=== PATIENT | female | born 1965 | race Caucasian/White ===

== ENCOUNTER 2018-12-15 09:07 | Observation (INO) ==
[2018-12-15] MEDS ORDERED: *HR* Promethazine 25 MG/ML VIAL IVP PRN ×2 (13:42→15:23)
[2018-12-15] MEDS ORDERED: Piperacillin/Tazobactam 3.375 GM in Water for inj. (sterile) 20 ML IVP ONE (13:42)
[2018-12-15] MEDS ORDERED: Ondansetron 4 MG/2 ML VIAL IVP PRN ×2 (13:42→18:25)
[2018-12-15] MEDS ORDERED: Pantoprazole 40 MG VIAL IVP SCH (13:45)
[2018-12-15] MEDS ORDERED: 0.9 % Sodium Chloride 1,000 ML IVC SCH (13:45)
--- NOTE | 2018-12-15 14:35 | Acute Care Surgery H&P ---
<PedroYudy Solomon - Last Filed: 12/15/18 14:32> Date of Encounter: 12/15/18 Time of Encounter: 14:33 Assessment and Plan (1) Left breast abscess Current Visit: Yes Status: Acute The assessment and plan as outlined above was discussed with the patient and/or family members who expressed understanding and agreement. All questions were answered. Plans for surgical excision of left breast wound and wound vac application today with Dr. Herbert. Please see hard chart for complete H&P. we will obtain labs, blood cultures, MRSA swab as this is recurrent, CT of the left breast, and begin ATBX. NPO smoking cessation Duoneb Q4H x2 preoperatively IS DVT prophylaxis EKG for baseline Recommendations, risks, and benefits have been expressly reviewed with the patient bedside by Dr. Herbert and she is agreeable to proceed. A signed consent is placed on her hard chart. History of Present Illness Chief complaint: left breast pain HPI: Ms. Rich is a 53 year old female who is being admitted for surgical excision of a left breast wound. Please see hard chart for complete history and physical. Past Med Surg Social Fam HX - Past Medical History Medical history: asthma, COPD, diabetes, GERD, hypertension, other Additional medical history: crohns, Psychiatric history: anxiety, depression - Past Surgical History Surgical History: appendectomy, , cataract, knee replacement Additional surgical history: Intestinal sx, tubial, - Social History Smoking Status: Current every day smoker Packs per day: 1 Smokeless Tobacco Status: No Alcohol use: rarely Drug use: none - Family History Mother Living Status: Still Living Hx Family Cardiac Disorders: Yes Hx Family Respiratory Disorders: No Hx Family Cancer: No Hx Family GI Disorders: No Hx Family Endocrine Disorder: No Hx Family Neuromuscular Disorders: No Hx Family Neurologic Disorders: No Hx Family HEENT Disorders: No Hx Family Autoimmune Disorders: No Father History Unknown: Yes Adopted: No Living Status: Hx Family Cardiac Disorders: Yes Hx Family Respiratory Disorders: No Hx Family Cancer: No Hx Family GI Disorders: No Hx Family Endocrine Disorder: No Hx Family Neuromuscular Disorders: Yes (CVA) Hx Family Neurologic Disorders: No Hx Family HEENT Disorders: No Hx Family Autoimmune Disorders: No Medications and Allergies Paroxetine [Paxil] 40 mg PO DAILY 11/20/15 [History] Albuterol Sulfate [Proair Hfa] 2 puff IH Q4-6H PRN 01/16/17 [History] Amitriptyline HCl 50 mg PO HS 06/23/16 [History] Labetalol [Trandate] 600 mg PO BID 06/23/16 [History] Loratadine [Claritin] 10 mg PO DAILY 06/23/16 [History] TraZODone 100 mg PO HS PRN 06/23/16 [History] Losartan/HCTZ [Hyzaar 50-12.5 Tablet] 1 tab PO DAILY 08/21/16 [History] Tizanidine HCl [Zanaflex] 4 mg PO TID 12/02/17 [History] Basaglar Kwikpen U-100 60 unit SQ HS 07/20/18 [History] Breo Ellipta 200-25 Mcg INH 1 puff IH DAILY 07/20/18 [History] Caltrate 600+D Plus Tablet 1 tab PO BID 07/20/18 [History] Invokamet 150-1,000 mg Tablet 1 tab PO BID 07/20/18 [History] Oxybutynin Chloride [Ditropan Xl] 1 tab PO DAILY 07/20/18 [History] Pantoprazole Sodium 1 tab PO DAILY 07/20/18 [History] Percocet 5-325 mg Tablet 1 tab PO Q12H 07/20/18 [History] metroNIDAZOLE [Flagyl] 500 mg PO TID #21 tablet 09/25/18 [Rx] Ondansetron ODT [Zofran ODT] 4 mg SL Q6HR PRN #8 tab.rapdis 10/04/18 [Rx] Promethazine [Phenergan] 25 mg PO Q6HR PRN #16 tablet 10/04/18 [Rx] predniSONE [PredniSONE] 10 mg PO DAILY #10 tablet 10/04/18 [Rx] Allergy/AdvReac Type Severity Reaction Status Date / Time No Known Allergies Allergy Verified 07/14/18 11:52 Review of Systems All systems PM: The remainder of the systems were reviewed and are negative General Surgery Exam Initial Vital Signs Temp Pulse Resp BP Pulse Ox 98.4 F 67 16 138/83 98 12/15/18 10:31 12/15/18 10:31 12/15/18 10:31 12/15/18 10:31 12/15/18 10:31 Results - Labs Abnormal lab results POC Glucose 215 mg/dL (70-99) H 12/15/18 10:17 All other labs normal. - VTE Reasons for not Prescribing Prophylaxis: Treatment not Indicated - Low risk for VTE <Deep Herbert - Last Filed: 12/15/18 21:43> Date of Encounter: 12/15/18 History of Present Illness HPI: Ms. Rich is a 53 year old female Review of Systems All systems PM: The remainder of the systems were reviewed and are negative General Surgery Exam Initial Vital Signs Temp Pulse Resp BP Pulse Ox 98.4 F 67 16 138/83 98 12/15/18 10:31 12/15/18 10:31 12/15/18 10:31 12/15/18 10:31 12/15/18 10:31 Results - Labs 12/15/18 13:42 12/15/18 13:45 Abnormal lab results WBC 13.4 K/mcL (4.3-11.1) H 12/15/18 13:42 PT 12.2 Seconds (9.4-12.1) H 12/15/18 13:45 Chloride 97 mEq/L (98-107) L 12/15/18 13:45 Carbon Dioxide 30 mEq/L (23-29) H 12/15/18 13:45 Glucose 135 mg/dL (70-105) H 12/15/18 13:45 POC Glucose 277 mg/dL (70-99) H 12/15/18 21:06 9.9 % (-5.6) H 12/15/18 13:42 Diabetes panel 12/15/18 12/15/18 Range/Units 13:42 13:45 Sodium 139 (136-145) mEq/L Potassium 3.7 (3.5-5.1) mEq/L Chloride 97 L (98-107) mEq/L Carbon Dioxide 30 H (23-29) mEq/L BUN 7 (6-20) mg/dL Creatinine 0.60 (0.60-1.20) mg/dL Glucose 135 H (70-105) mg/dL Hemoglobin A1c 9.9 H ( - 5.6) % Calcium 9.7 (8.6-10.3) mg/dL Calcium panel 12/15/18 Range/Units 13:45 Calcium 9.7 (8.6-10.3) mg/dL Pituitary panel 12/15/18 Range/Units 13:45 Sodium 139 (136-145) mEq/L Potassium 3.7 (3.5-5.1) mEq/L Chloride 97 L (98-107) mEq/L Carbon Dioxide 30 H (23-29) mEq/L BUN 7 (6-20) mg/dL Creatinine 0.60 (0.60-1.20) mg/dL Glucose 135 H (70-105) mg/dL Calcium 9.7 (8.6-10.3) mg/dL Adrenal panel 12/15/18 Range/Units 13:45 Sodium 139 (136-145) mEq/L Potassium 3.7 (3.5-5.1) mEq/L Chloride 97 L (98-107) mEq/L Carbon Dioxide 30 H (23-29) mEq/L BUN 7 (6-20) mg/dL Creatinine 0.60 (0.60-1.20) mg/dL Glucose 135 H (70-105) mg/dL Calcium 9.7 (8.6-10.3) mg/dL All other labs normal. - Attending Attestation I have personally performed a face to face evaluation on this patient. I have reviewed and agree with the care plan. History and Exam by me shows: The patient is seen and evaluated with Dr. Maier. She has a necrotic abcess/ulcer of the left breast with surrounding cellulitis. 3 x 3 x 2 cm with liquifactive necrosis. We will plan debridement later today and wounnd vac primarily Deep Herbert MD FACS
[2018-12-15] MEDS ORDERED: D5% in Water 1,000 ML IVC PRN ×2 (14:37→18:25)
[2018-12-15] MEDS ORDERED: *HR* Dextrose 50 % in Water (Syg) 50 ML SYRINGE IVP PRN ×2 (14:37→18:25)
[2018-12-15] MEDS ORDERED: Dextrose Gel 15 GM/37.5 ML TUBE PO PRN ×4 (14:37→18:25)
[2018-12-15 15:10] LABS: Basophils # 0.1 K/mcL (0.0-0.2); Basophils % 0.8 %; Eosinophils # 0.5 K/mcL (0.0-0.6); Eosinophils % 3.4 %; Hematocrit 42.4 % (35.3-44.9); Hemoglobin 13.7 g/dL (11.5-15.4); Immature Granulocytes % 0.6 % (0-4); Lymphocytes # 4.3 K/mcL (0.6-4.6); Lymphocytes % 32.3 %; Mean Corpuscular HGB Conc 32.3 g/dL (31.6-35.5); Mean Corpuscular Hemoglobin 31.6 pg (28.0-33.3); Mean Corpuscular Volume 97.7 fL (83.0-100.0); Mean Platelet Volume 9.4 fL (9.4-12.4); Monocytes # 0.9 K/mcL (0.0-1.3); Monocytes % 6.8 %; Neutrophils # 7.5 K/mcL (1.6-8.9); Platelet Count 290 K/mcL (140-400); Red Blood Count 4.34 M/mcL (3.82-4.97); Red Cell Distribution Width 13.8 % (11.5-14.5); Segmented Neutrophils % 56.1 %; White Blood Count 13.4 K/mcL (4.3-11.1)
[2018-12-15 15:20] LABS: INR 1.1; Prothrombin Time 12.2 Seconds (9.4-12.1)
--- NOTE | 2018-12-15 15:20 | Anesthesia Evaluation PreOp ---
Date of Encounter: 12/15/18 Time of Encounter: 15:18 - Past History Planned Operation: I&D L breast with wound vac Cardiac History: HTN, Hyperlipidemia Pulmonary History: Smoker (1 ppd), Asthma (mild), COPD, IVONNE Dx (CPAP 2) [employer] History: Other (anxiety depression) Other Medical History: Diabetes Type II, GERD, Other (BMI 41, Crohn's) Anesthesia History: No Prior Anesthetic Complications, Past Anesthesia (C- section, Appy, L-TKR, Ileocecectomy/excision merkels diverticulum, Tubal, L- knee chondroplasty ,L-TKR 2008,4 R-TKR 05/2013, Cataracts) : No Alcohol Use: rarely Drug use: none Medications and Allergies Paroxetine [Paxil] 40 mg PO DAILY 11/20/15 [History] Albuterol Sulfate [Proair Hfa] 2 puff IH Q4-6H PRN 06/23/16 [History] Amitriptyline HCl 50 mg PO HS 06/23/16 [History] Labetalol [Trandate] 600 mg PO BID 06/23/16 [History] Loratadine [Claritin] 10 mg PO DAILY 06/23/16 [History] TraZODone 100 mg PO HS PRN 06/23/16 [History] Losartan/HCTZ [Hyzaar 50-12.5 Tablet] 1 tab PO DAILY 08/21/16 [History] Tizanidine HCl [Zanaflex] 4 mg PO TID 12/02/17 [History] Basaglar Kwikpen U-100 60 unit SQ HS 07/20/18 [History] Breo Ellipta 200-25 Mcg INH 1 puff IH DAILY 07/20/18 [History] Caltrate 600+D Plus Tablet 1 tab PO BID 07/20/18 [History] Invokamet 150-1,000 mg Tablet 1 tab PO BID 07/20/18 [History] Oxybutynin Chloride [Ditropan Xl] 1 tab PO DAILY 07/20/18 [History] Pantoprazole Sodium 1 tab PO DAILY 07/20/18 [History] Percocet 5-325 mg Tablet 1 tab PO Q12H 07/20/18 [History] metroNIDAZOLE [Flagyl] 500 mg PO TID #21 tablet 09/25/18 [Rx] Ondansetron ODT [Zofran ODT] 4 mg SL Q6HR PRN #8 tab.rapdis 10/04/18 [Rx] Promethazine [Phenergan] 25 mg PO Q6HR PRN #16 tablet 10/04/18 [Rx] predniSONE [PredniSONE] 10 mg PO DAILY #10 tablet 10/04/18 [Rx] Allergy/AdvReac Type Severity Reaction Status Date / Time No Known Allergies Allergy Verified 07/14/18 11:52 - Meds/Allergy Pre-op Review Medications Reviewed: Yes Allergies Reviewed: Yes Beta Blockers on Current Med List: Yes (labetalol ) Anesthesia Results - Labs 12/15/18 13:42 - Imaging EKG: report reviewed Anesthesia Exam Vital Signs/O2 Sat/Glucose, Most Recent Temp Pulse Resp BP Pulse Ox 97.9 F 60 21 155/92 99 12/15/18 12:37 12/15/18 12:37 12/15/18 12:37 12/15/18 12:37 12/15/18 12:37 Blood Glucose* 215 Weight: 113 kg NPO (# of Hours): > 8 hr - HEENT Pupil (Motor): Pupils equal Mallampati: II Teeth: Edentulous Oral Opening: Greater than 3 - [employer] LOC: Oriented [employer] Motor: Normal RUE, Normal LUE, Normal RLE, Normal LLE, Normal Face [employer] Sensory: Normal: RUE, LUE, RLE, LLE, Face - Cardiac Rhythm: Regular Murmur: None - Pulmonary Breath Sounds: bilateral Clear Respiratory Effort: Symmetrical Anesthesia Assess/Plan ASA Score: 3 (BMI 41, IVONNE, COPD, HTN) Level of consciousness: Cooperative, Oriented Anesthetic Plan: General Monitoring Plan: Standard Monitors Recovery Plan: PACU
[2018-12-15] MEDS ORDERED: *HR* Labetalol 20 MG/4 ML SYRINGE IVP PRN (15:23)
[2018-12-15] MEDS ORDERED: Ketorolac 30 MG/ML VIAL IVP ONE (15:23)
[2018-12-15] MEDS ORDERED: Ondansetron 4 MG/2 ML VIAL IVP ONE (15:23)
[2018-12-15] MEDS ORDERED: *HR* OxyCODONE Immed Rel 5 MG TABLET PO PRN (15:23)
[2018-12-15] MEDS ORDERED: Acetaminophen IV 1,000 MG/100 ML INFUS..BTL IVPB ONE (15:23)
[2018-12-15] MEDS ORDERED: *HR* HYDROmorphone (PF) 1 MG/ML SYRINGE IVP PRN (15:23)
[2018-12-15 15:28] LABS: BUN/Creatinine Ratio 12 (6-26); Blood Urea Nitrogen 7 mg/dL (6-20); Calcium 9.7 mg/dL (8.6-10.3); Carbon Dioxide 30 mEq/L (23-29); Chloride 97 mEq/L (98-107); Glucose 135 mg/dL (70-105); Osmolality,Calculated 288 (280-300); Potassium 3.7 mEq/L (3.5-5.1); Sodium 139 mEq/L (136-145); eGFR For African Americans > 60 (> 60); eGFR For Non-African Americans > 60 (> 60)
[2018-12-15] MEDS: Ipratropium/Albuterol Neb 3 ML IH SCH (16:14)
[2018-12-15] MEDS: Albuterol 2.5 MG/3 ML NEBULIZER IH ONE ×2 (16:14→18:02)
[2018-12-15] MEDS ORDERED: Dexamethasone 4 MG/ML VIAL ONE (16:57)
[2018-12-15] MEDS ORDERED: Ondansetron 4 MG/2 ML VIAL ONE (16:57)
[2018-12-15] MEDS ORDERED: Lidocaine -MPF 2% 2 ML VIAL ONE (16:57)
[2018-12-15] MEDS ORDERED: *HR* Propofol 200 MG/20 ML VIAL IVP ONE ×2 (16:57→17:01)
[2018-12-15] MEDS ORDERED: *HR* FentaNYL (PF) 100 MCG/2 ML VIAL ONE (16:57)
[2018-12-15 17:19] LABS: Estimated Average Glucose 237 mg/dl
--- NOTE | 2018-12-15 17:40 | Operative Note ---
Date of procedure: 12/15/18 Pre-op diagnosis: Necrotic wound left breast Post-op diagnosis: same Procedure: #1 resection of necrotic ulcer left breast. Ulcer measures 3 cm x 3 cm x 2 cm and completely removed by liquefactive necrosis. Resection measures 5 cm x 4 cm x 2.5 cm #[address] negative pressure wound dressing (wound VAC) Anesthesia: CHANEL Surgeon: Deep Herbert Was there an social science research assistant present: No Estimated blood loss (cc): 10 Specimen: 5 cm x 4 cm tissue containing a central necrotic ulcer Condition: stable Disposition: PACU Procedure in Detail: After informed consent the patients taking major operating suite placed in the supine position and given adequate general anesthetic. The left breast is prepped and draped in sterile fashion utilizing Betadine solution and standard draping techniques. The left breast is marked with a lateralizing mariangel and this is identified and there is a stop sign on the right breast. The left breast has a 3 cm x 3 cm x 2 cm deep ulcer completely surrounded with liquefactive necrosis and cellulitis. This will need to be excised. Electrocautery was used to make an elliptical skin incision around the ulcer I dissected down to the level of the pectoralis and completely resected the ulcer and surrounding tissue to normal tissue. The excision is 5 cm x 4 cm x 2.5 cm depth. Electrocautery was used for hemostasis. I obtained cultures of the deep tissues for aerobic and anaerobic cultures. I then irrigated with copious amounts of antibiotic containing solution. I cut black sponge to up appropriate size and applied a negative pressure wound dressing. This developed good suction. There was no bleeding. Blood loss was 10 mL. Patient tolerated the procedure well.
[2018-12-15] MEDS ORDERED: Insulin LISPRO 300 UNITS/3 ML VIAL SQ SCH (18:00)
[2018-12-15] MEDS ORDERED: 0.9 % Sodium Chloride 1,000 ML ONE (19:07)
[2018-12-15] MEDS: 0.9 % Sodium Chloride 1,000 ML IVC SCH (21:00)
[2018-12-16] MEDS ORDERED: Piperacillin/Tazobactam 3.375 GM in 0.9 % Sodium Chloride Mini Bag 100 ML IVPB SCH
[2018-12-16] MEDS ORDERED: Insulin LISPRO 300 UNITS/3 ML VIAL SQ SCH
--- NOTE | 2018-12-16 02:18 | Anesthesia Evaluation Post Op ---
Date of Encounter: 12/15/18 Time of Encounter: 18:15 - Vital Signs Vital Signs: Vital Signs Temp Pulse Resp BP Pulse Ox 12/15/18 18:17 98.8 F 66 14 144/76 92 12/15/18 18:07 98.3 F 66 12 138/72 95 12/15/18 17:57 68 14 129/69 91 12/15/18 17:47 70 14 119/68 93 12/15/18 17:37 98.3 F 74 16 108/67 96 12/15/18 12:37 97.9 F 60 21 155/92 99 12/15/18 10:31 98.4 F 67 16 138/83 98 Intake and Output 12/15/18 12/15/18 12/16/18 15:59 23:59 07:59 Intake Total 220 / 220 Output Total 305 / 305 Balance -85 / -85 Intake: Oral 220 / 220 Output: Urine 300 / 300 Estimated Blood Loss 5 / 5 Other: # Voids 1 1 Weight 113.398 kg Blood Glucose* 215 277 - Lungs Lungs: Clear Ascult./Percussion - Airway Airway: Non-obstructed - Cardiovascular Baseline Rhythm - Mental Status Mental Status: Alert & Oriented, Answers Appropriately - Pain Pain Scale: 4 Pain Scale used: Numeric (1 - 10) - Nausea Vomiting Nausea Vomiting: Not Present - Hydration Hydration: Ice chips, Has not voided - Discharge PostOp Status: Transfer Patient to floor Anes Supervising Prov Stmt: Pt seen/evaluated VSS and has met criteria for discharge to floor. - MD Stephany
[2018-12-16] MEDS ORDERED: Dextrose Gel 15 GM/37.5 ML TUBE PO PRN ×2 (06:22)
[2018-12-16] MEDS ORDERED: D5% in Water 1,000 ML IVC PRN (06:22)
[2018-12-16] MEDS ORDERED: *HR* Dextrose 50 % in Water (Syg) 50 ML SYRINGE IVP PRN (06:22)
[2018-12-16] MEDS: Insulin LISPRO 300 UNITS/3 ML VIAL SQ SCH ×5 (08:09→21:14)
[2018-12-16] MEDS: Pantoprazole 40 MG VIAL IVP SCH (08:44)
[2018-12-16] MEDS ORDERED: Vancomycin 500 MG in 0.9 % Sodium Chloride Mini Bag 100 ML IVPB SCH (11:00)
--- NOTE | 2018-12-16 11:53 | AcuteCareSurgery Progress Note ---
Date of Encounter: 12/16/18 Time of Encounter: 10:00 - Assessment and Plan (1) Left breast abscess Current Visit: Yes Status: Acute The patient is postoperative day 1 from excision of left breast abscess/ulcer with debridement all the way to the chest wall. She is currently on negative pressure wound dressing and broad-spectrum antibiotic therapy. Continue current treatment plan Subjective Narrative: The patient is seen and evaluated on morning rounds with the acute care surgery team. She is afebrile. Her vital signs are stable. The surrounding breast erythema is completely gone after debridement. Her negative pressure wound dressing (wound VAC) is operating normally. I was disappointed to see that multiple attempts to renew her antibiotics failed. She is currently not scheduled for any antibiotic therapy. I will restart her Zosyn and vancomycin. Pain control is excellent. We will await pathologic evaluation as well as culture information. We will plan to transition to oral antibiotics and discharged to home wound VAC therapy tomorrow if she remains afebrile Objective Vital Signs - Last 8 Hours Temp Pulse Resp BP Pulse Ox 12/16/18 11:29 97.7 F 72 16 121/60 95 12/16/18 08:24 97.6 F 68 16 138/79 92 12/16/18 04:00 97.8 F 70 18 133/73 97 Intake and Output 12/15/18 12/16/18 12/16/18 23:59 07:59 15:59 Intake Total 220 / 220 450 / 680 230 / 680 Output Total 305 / 305 600 / 825 225 / 825 Balance -85 / -85 -150 / -145 5 / -145 Intake: IV Fluids 250 / 250 Vancocin 1,500 MG In 0.9 % 250 / 250 Sodium Chloride 250 ML @ 166.67 mls/hr IVPB ONCE ONE Rx#: [id number] Oral 220 / 220 200 / 430 230 / 430 Output: Urine 300 / 300 600 / 800 200 / 800 Estimated Blood Loss 5 / 5 Wound Drainage Medial Chest Other: Meal Breakfast Percent of Meal Consumed 75% # Voids 1 Blood Glucose* 277 230 - General physical appearance well developed, well nourished, obese - Respiratory normal expansion, normal respiratory effort, clear to percussion, clear to auscultation - Cardiovascular Cardiovascular exam: Present: RRR, no murmurs/rubs/gallops - Abdomen Abdomen: Present: bowel sounds present, soft, non tender - Incision Incision: Present: open (Negative pressure wound therapy in place with a good se al with no surrounding erythema) - Neurologic normal coordination, normal sensation - Psychiatric oriented to time, oriented to person, oriented to place, speech is normal, memory intact - Labs 12/15/18 13:42 12/15/18 13:45 Diabetes panel 12/15/18 12/15/18 Range/Units 13:42 13:45 Sodium 139 (136-145) mEq/L Potassium 3.7 (3.5-5.1) mEq/L Chloride 97 L (98-107) mEq/L Carbon Dioxide 30 H (23-29) mEq/L BUN 7 (6-20) mg/dL Creatinine 0.60 (0.60-1.20) mg/dL Glucose 135 H (70-105) mg/dL Hemoglobin A1c 9.9 H ( - 5.6) % Calcium 9.7 (8.6-10.3) mg/dL Calcium panel 12/15/18 Range/Units 13:45 Calcium 9.7 (8.6-10.3) mg/dL Pituitary panel 12/15/18 Range/Units 13:45 Sodium 139 (136-145) mEq/L Potassium 3.7 (3.5-5.1) mEq/L Chloride 97 L (98-107) mEq/L Carbon Dioxide 30 H (23-29) mEq/L BUN 7 (6-20) mg/dL Creatinine 0.60 (0.60-1.20) mg/dL Glucose 135 H (70-105) mg/dL Calcium 9.7 (8.6-10.3) mg/dL Adrenal panel 12/15/18 Range/Units 13:45 Sodium 139 (136-145) mEq/L Potassium 3.7 (3.5-5.1) mEq/L Chloride 97 L (98-107) mEq/L Carbon Dioxide 30 H (23-29) mEq/L BUN 7 (6-20) mg/dL Creatinine 0.60 (0.60-1.20) mg/dL Glucose 135 H (70-105) mg/dL Calcium 9.7 (8.6-10.3) mg/dL - VTE Reasons for not Prescribing Prophylaxis: Treatment not Indicated - Low risk for VTE Documentation of Mechanical Device: Intermittent pneumatic compression device Consult Discharge Plan - Plan Referrals: Maxim Poole MD [Primary Care Provider] -
--- NOTE | 2018-12-16 12:54 | Electrocardiograph Report ---
[address] [address] Test Date: 2018-12-15 Pat Name: Anastasia Rich Department: EXAM12 Room: [facility] Gender: Uptwist Spinner: : 1965 Requested By: Yudy Vasquez Order Number: [id number] Reading MD: Chelsy Abraham Measurements Intervals [place] Rate: 56 P: [place]: QRS: -5 QRSD: 108 T: 18 QT: 470 QTc: 454 Interpretive Statements Sinus rhythm Artifact limits interpretation Electronically Signed On 12-16-2018 12:52:36 EDT by Chelsy Abraham
[2018-12-16 13:10] LABS: Basophils # 0.1 K/mcL (0.0-0.2); Basophils % 0.4 %; Eosinophils # 0.1 K/mcL (0.0-0.6); Eosinophils % 0.8 %; Hematocrit 41.5 % (35.3-44.9); Hemoglobin 13.3 g/dL (11.5-15.4); Immature Granulocytes % 0.4 % (0-4); Lymphocytes # 3.6 K/mcL (0.6-4.6); Lymphocytes % 22.9 %; Mean Corpuscular Hemoglobin 32.1 pg (28.0-33.3); Mean Corpuscular Volume 100.2 fL (83.0-100.0); Mean Platelet Volume 9.7 fL (9.4-12.4); Monocytes # 1.1 K/mcL (0.0-1.3); Monocytes % 6.8 %; Neutrophils # 10.7 K/mcL (1.6-8.9); Platelet Count 338 K/mcL (140-400); Red Blood Count 4.14 M/mcL (3.82-4.97); Red Cell Distribution Width 13.5 % (11.5-14.5); Segmented Neutrophils % 68.7 %; White Blood Count 15.6 K/mcL (4.3-11.1)
[2018-12-16] MEDS: Piperacillin/Tazobactam 3.375 GM in 0.9 % Sodium Chloride Mini Bag 100 ML IVPB SCH (13:21)
[2018-12-16 13:30] LABS: BUN/Creatinine Ratio 13 (6-26); Blood Urea Nitrogen 15 mg/dL (6-20); Calcium 8.9 mg/dL (8.6-10.3); Carbon Dioxide 28 mEq/L (23-29); Chloride 97 mEq/L (98-107); Glucose 256 mg/dL (70-105); Osmolality,Calculated 300 (280-300); Potassium 3.9 mEq/L (3.5-5.1); Sodium 140 mEq/L (136-145); eGFR For African Americans > 60 (> 60); eGFR For Non-African Americans 50 (> 60)
[2018-12-16] MEDS ORDERED: Vancomycin 1 EACH in 0.9 % Sodium Chloride 250 ML IVPB SCH (16:00)
[2018-12-16] MEDS: 0.9 % Sodium Chloride 1,000 ML IVC SCH (20:54)
[2018-12-17] MEDS: Piperacillin/Tazobactam 3.375 GM in 0.9 % Sodium Chloride Mini Bag 100 ML IVPB SCH ×2 (00:27→08:44)
[2018-12-17] MEDS: Insulin LISPRO 300 UNITS/3 ML VIAL SQ SCH ×3 (08:15→17:26)
[2018-12-17] MEDS ORDERED: 0.9 % Sodium Chloride Mini Bag 100 ML ONE (08:29)
[2018-12-17] MEDS: Pantoprazole 40 MG VIAL IVP SCH (08:42)
[2018-12-17 08:44] LABS: Basophils # 0.1 K/mcL (0.0-0.2); Basophils % 0.6 %; Eosinophils # 0.3 K/mcL (0.0-0.6); Eosinophils % 2.5 %; Hematocrit 43.5 % (35.3-44.9); Hemoglobin 13.7 g/dL (11.5-15.4); Immature Granulocytes % 0.5 % (0-4); Lymphocytes # 3.2 K/mcL (0.6-4.6); Lymphocytes % 28.2 %; Mean Corpuscular HGB Conc 31.5 g/dL (31.6-35.5); Mean Corpuscular Hemoglobin 31.8 pg (28.0-33.3); Mean Corpuscular Volume 100.9 fL (83.0-100.0); Mean Platelet Volume 9.8 fL (9.4-12.4); Monocytes # 0.8 K/mcL (0.0-1.3); Monocytes % 6.6 %; Neutrophils # 6.9 K/mcL (1.6-8.9); Platelet Count 297 K/mcL (140-400); Red Blood Count 4.31 M/mcL (3.82-4.97); Red Cell Distribution Width 13.9 % (11.5-14.5); Segmented Neutrophils % 61.6 %; White Blood Count 11.3 K/mcL (4.3-11.1)
[2018-12-17 08:46] LABS: BUN/Creatinine Ratio 13 (6-26); Blood Urea Nitrogen 13 mg/dL (6-20); Carbon Dioxide 29 mEq/L (23-29); Chloride 103 mEq/L (98-107); Glucose 183 mg/dL (70-105); Osmolality,Calculated 297 (280-300); Potassium 3.9 mEq/L (3.5-5.1); Sodium 141 mEq/L (136-145); eGFR For African Americans > 60 (> 60); eGFR For Non-African Americans 58 (> 60)
[2018-12-17 11:49] VITALS: BP 160/90
--- NOTE | 2018-12-17 12:57 | Discharge Summary ---
<Yudy Vasquez - Last Filed: 12/17/18 14:25> Orders not resulted at time of discharge: Pending orders 12/15/18 14:52 Culture,Blood [BC] Stat Pre-admission MRSA Screen [RM] Stat 12/15/18 17:18 Culture,Anaerobic [RM] Routine 12/15/18 17:42 Surgical Pathology [PTH] Routine Date of Encounter: 12/17/18 Time of Encounter: 12:52 - Discharge Diagnosis (1) Left breast abscess Priority: Primary Status: Acute General Surgery Exam Initial Vital Signs Temp Pulse Resp BP Pulse Ox 98.4 F 67 16 138/83 98 12/15/18 10:31 12/15/18 10:31 12/15/18 10:31 12/15/18 10:31 12/15/18 10:31 - General physical appearance well nourished, no distress - Respiratory normal respiratory effort - Cardiovascular Cardiovascular exam: Present: RRR - Abdomen Abdomen general surgery: Present: bowel sounds present, soft, non tender - Integumentary Integumentary general surgery: Present: other (wound vac occulsive noted) - Neurologic Present: CN 2-12 grossly intact, normal coordination, normal sensation - Musculoskeletal Present: normal gait, normal posture - Psychiatric Psychiatric general surgery: Present: appropriate, oriented to person, oriented to place, oriented to time, speech is normal, memory intact - Hospital Course Hospital course: Ms. Rich is a 53 year old female presented on 12/15/2018 with necrotic left breast wounds last abscess. She was taken to the operating room on the same day where she underwent resection of necrotic ulcers left breast, removal of liquefied necrosis, and placement of a wound VAC. Her hospital course has been uncomplicated. She will be discharged on PO antibiotics and follow-up in the office in approximately 2 to [address] Maier per the patient's request. We will begin discharge planning to home at this time. Home health care to begin on Thursday for wound VAC changes. - Time Spent with Patient Total time spent providing and/or coordinating discharge services: - Discharge Medications Prescriptions: New Amoxicillin/Clavulanate [Augmentin] 875 mg PO BIDWM 14 Days #28 tablet Docusate Sodium [Colace] 100 mg PO BID PRN #30 capsule PRN Reason: Constipation Ibuprofen 800 mg PO Q8H PRN #30 tablet PRN Reason: Postsurgical pain OxyCODONE/APAP 5/325 [Percocet 5/325 MG] 1 each PO Q6HR PRN 7 Days #28 tablet PRN Reason: Pain Ondansetron ODT [Zofran ODT] 4 mg SL Q4HR PRN #30 tab.rapdis PRN Reason: Nausea Continued Amitriptyline HCl 50 mg PO HS Albuterol Sulfate [Proair Hfa] 2 puff IH Q4-6H PRN PRN Reason: Asthma Loratadine [Claritin] 10 mg PO DAILY TraZODone 100 mg PO HS PRN PRN Reason: Sleep Labetalol [Trandate] 600 mg PO BID Losartan/HCTZ [Hyzaar 50-12.5 Tablet] 1 tab PO DAILY Tizanidine HCl [Zanaflex] 4 mg PO TID Basaglar Kwikpen U-100 60 unit SQ HS Caltrate 600+D Plus Tablet 1 tab PO BID Breo Ellipta 200-25 Mcg INH 1 puff IH DAILY Pantoprazole Sodium 1 tab PO DAILY Invokamet 150-1,000 mg Tablet 1 tab PO BID Oxybutynin Chloride [Ditropan XL] 1 tab PO DAILY Paroxetine [Paxil] 40 mg PO DAILY Promethazine [Phenergan] 25 mg PO Q6HR PRN #16 tablet PRN Reason: Nausea Ondansetron ODT [Zofran ODT] 4 mg SL Q6HR PRN #8 tab.rapdis PRN Reason: Nausea Discontinued Percocet 5-325 mg Tablet 1 tab PO Q12H Home Medications: Paroxetine [Paxil] 40 mg PO DAILY 11/20/15 [History] Albuterol Sulfate [Proair Hfa] 2 puff IH Q4-6H PRN 06/23/16 [History] Amitriptyline HCl 50 mg PO HS 06/23/16 [History] Labetalol [Trandate] 600 mg PO BID 06/23/16 [History] Loratadine [Claritin] 10 mg PO DAILY 06/23/16 [History] TraZODone 100 mg PO HS PRN 06/23/16 [History] Losartan/HCTZ [Hyzaar 50-12.5 Tablet] 1 tab PO DAILY 08/21/16 [History] Tizanidine HCl [Zanaflex] 4 mg PO TID 12/02/17 [History] Basaglar Kwikpen U-100 60 unit SQ HS 07/20/18 [History] Breo Ellipta 200-25 Mcg INH 1 puff IH DAILY 07/20/18 [History] Caltrate 600+D Plus Tablet 1 tab PO BID 07/20/18 [History] Invokamet 150-1,000 mg Tablet 1 tab PO BID 07/20/18 [History] Oxybutynin Chloride [Ditropan XL] 1 tab PO DAILY 07/20/18 [History] Pantoprazole Sodium 1 tab PO DAILY 07/20/18 [History] Ondansetron ODT [Zofran ODT] 4 mg SL Q6HR PRN #8 tab.rapdis 10/04/18 [Rx] Promethazine [Phenergan] 25 mg PO Q6HR PRN #16 tablet 10/04/18 [Rx] Amoxicillin/Clavulanate [Augmentin] 875 mg PO BIDWM 14 Days #28 tablet 12/17/18 [Rx] Docusate Sodium [Colace] 100 mg PO BID PRN #30 capsule 12/17/18 [Rx] Ibuprofen 800 mg PO Q8H PRN #30 tablet 12/17/18 [Rx] Ondansetron ODT [Zofran ODT] 4 mg SL Q4HR PRN #30 tab.rapdis 12/17/18 [Rx] OxyCODONE/APAP 5/325 [Percocet 5/325 MG] 1 each PO Q6HR PRN 7 Days #28 tablet 12/17/18 [Rx] Allergies/Adverse Reactions: Allergy/AdvReac Type Severity Reaction Status Date / Time No Known Allergies Allergy Verified 07/14/18 11:52 Date of admission: 12/15/18 09:25 Primary care physician: Maxim Poole MD Consults: 12/16/18 16:23 Consult to Consulting Engineer [CONS] Stat Reason for Consult: [facility] for wound vac. Forms have been filled out and faxed Discharging clinician: Moise Vasquez) Anticipated date of discharge: 12/17/18 Labs on day of discharge: Labs from last 24 hours 12/17/18 12/17/18 12/17/18 11:21 08:08 08:08 WBC 11.3 H RBC 4.31 Hgb 13.7 Hct 43.5 MCV 100.9 H MCH 31.8 MCHC 31.5 L RDW 13.9 Plt Count 297 MPV 9.8 Immature Gran % 0.5 Seg Neutrophils % 61.6 Lymphocytes % 28.2 Monocytes % 6.6 Eosinophils % 2.5 Basophils % 0.6 Neutrophils # 6.9 Lymphocytes # 3.2 Monocytes # 0.8 Eosinophils # 0.3 Basophils # 0.1 Sodium 141 Potassium 3.9 Chloride 103 Carbon Dioxide 29 BUN 13 Creatinine 1.01 Est GFR ( Amer) > 60 Est GFR (Non-Af Amer) 58 L BUN/Creatinine Ratio 13 Glucose 183 H POC Glucose 182 H Calculated Osmolality 297 Calcium 9.0 Random Vancomycin 12/17/18 12/16/18 12/16/18 07:52 21:08 17:10 WBC RBC Hgb Hct MCV MCH MCHC RDW Plt Count MPV Immature Gran % Seg Neutrophils % Lymphocytes % Monocytes % Eosinophils % Basophils % Neutrophils # Lymphocytes # Monocytes # Eosinophils # Basophils # Sodium Potassium Chloride Carbon Dioxide BUN Creatinine Est GFR ( Amer) Est GFR (Non-Af Amer) BUN/Creatinine Ratio Glucose POC Glucose 159 H 269 H 241 H Calculated Osmolality Calcium Random Vancomycin 12/16/18 12/16/18 12/16/18 17:09 15:00 11:58 WBC RBC Hgb Hct MCV MCH MCHC RDW Plt Count MPV Immature Gran % Seg Neutrophils % Lymphocytes % Monocytes % Eosinophils % Basophils % Neutrophils # Lymphocytes # Monocytes # Eosinophils # Basophils # Sodium 140 Potassium 3.9 Chloride 97 L Carbon Dioxide 28 BUN 15 Creatinine 1.15 Est GFR ( Amer) > 60 Est GFR (Non-Af Amer) 50 L BUN/Creatinine Ratio 13 Glucose 256 H POC Glucose 254 H Calculated Osmolality 300 Calcium 8.9 Random Vancomycin 16 12/16/18 11:58 WBC 15.6 H RBC 4.14 Hgb 13.3 Hct 41.5 MCV 100.2 H MCH 32.1 MCHC 32.0 RDW 13.5 Plt Count 338 MPV 9.7 Immature Gran % 0.4 Seg Neutrophils % 68.7 Lymphocytes % 22.9 Monocytes % 6.8 Eosinophils % 0.8 Basophils % 0.4 Neutrophils # 10.7 H Lymphocytes # 3.6 Monocytes # 1.1 Eosinophils # 0.1 Basophils # 0.1 Sodium Potassium Chloride Carbon Dioxide BUN Creatinine Est GFR ( Amer) Est GFR (Non-Af Amer) BUN/Creatinine Ratio Glucose POC Glucose Calculated Osmolality Calcium Random Vancomycin Preliminary micro results at discharge 12/15/18 17:18 Anaerobic Culture - Preliminary Other-Specify in Comments Culture is incubating. 12/15/18 14:52 Blood Culture - Preliminary Peripheral Venipuncture Culture is incubating and being continuously monitored for growth. Final report to follow. 12/15/18 14:56 Blood Culture - Preliminary Peripheral Venipuncture Culture is incubating and being continuously monitored for growth. Final report to follow. - Patient Status Disposition: Home Health Service Condition: Good Functional capacity at discharge: independent ambulation Overall status at discharge: patient is progressing back to baseline - Discharge Instructions Instructions: Abscess (GEN), Negative Pressure Wound Therapy (DC) Follow Up With: Maxim Poole MD [Primary Care Provider] - Additional Instructions: Maintain wound VAC therapy at -125 mmHg; black foam dressings. Dressing changes every Thursday/Thursday/Thursday per home healthcare. Continue antibiotics as prescribed. Not stop antibiotics without talking to your provider. Take ibuprofen every 8 hours if needed for discomfort. If this does not relieve your discomfort you may take one Percocet. I recommend taking one Percocet approximately 60 minutes prior to your wound VAC changes. Eat a small snack and or take the nausea medication provided approximately 20 minutes prior to taking Percocet. Take narcotics only as directed. Do not share your narcotics with any other person. Do not drive while taking narcotics. Do not drink alcohol while taking narcotics. Follow-up in the office as directed. - Diet and Activity Activity: increase activity as tolerated Diet: diabetic diet <Moise Johnson F - Last Filed: 12/17/18 17:21> Orders not resulted at time of discharge: Pending orders 12/15/18 14:52 Culture,Blood [BC] Stat Pre-admission MRSA Screen [RM] Stat 12/15/18 17:18 Culture,Anaerobic [RM] Routine Date of Encounter: 12/17/18 General Surgery Exam Initial Vital Signs Temp Pulse Resp BP Pulse Ox 98.4 F 67 16 138/83 98 12/15/18 10:31 12/15/18 10:31 12/15/18 10:31 12/15/18 10:31 12/15/18 10:31 - Hospital Course Hospital course: Ms. Rich is a 53 year old female - Time Spent with Patient Total time spent providing and/or coordinating discharge services: Date of admission: 12/15/18 09:25 Primary care physician: Maxim Poole MD Consults: 12/16/18 16:23 Consult to Consulting Engineer [CONS] Stat Reason for SW Consult: [facility] for wound vac. Forms have been filled out and faxed Labs on day of discharge: Labs from last 24 hours 12/17/18 12/17/18 12/17/18 11:21 08:08 08:08 WBC 11.3 H RBC 4.31 Hgb 13.7 Hct 43.5 MCV 100.9 H MCH 31.8 MCHC 31.5 L RDW 13.9 Plt Count 297 MPV 9.8 Immature Gran % 0.5 Seg Neutrophils % 61.6 Lymphocytes % 28.2 Monocytes % 6.6 Eosinophils % 2.5 Basophils % 0.6 Neutrophils # 6.9 Lymphocytes # 3.2 Monocytes # 0.8 Eosinophils # 0.3 Basophils # 0.1 Sodium 141 Potassium 3.9 Chloride 103 Carbon Dioxide 29 BUN 13 Creatinine 1.01 Est GFR ( Amer) > 60 Est GFR (Non-Af Amer) 58 L BUN/Creatinine Ratio 13 Glucose 183 H POC Glucose 182 H Calculated Osmolality 297 Calcium 9.0 12/17/18 12/16/18 07:52 21:08 WBC RBC Hgb Hct MCV MCH MCHC RDW Plt Count MPV Immature Gran % Seg Neutrophils % Lymphocytes % Monocytes % Eosinophils % Basophils % Neutrophils # Lymphocytes # Monocytes # Eosinophils # Basophils # Sodium Potassium Chloride Carbon Dioxide BUN Creatinine Est GFR ( Amer) Est GFR (Non-Af Amer) BUN/Creatinine Ratio Glucose POC Glucose 159 H 269 H Calculated Osmolality Calcium Preliminary micro results at discharge 12/15/18 17:18 Anaerobic Culture - Preliminary Other-Specify in Comments Culture is incubating. 12/15/18 14:52 Blood Culture - Preliminary Peripheral Venipuncture Culture is incubating and being continuously monitored for growth. Final report to follow. 12/15/18 14:56 Blood Culture - Preliminary Peripheral Venipuncture Culture is incubating and being continuously monitored for growth. Final report to follow. - Attending Attestation I examined this patient and my medical decision-making was reviewed with the TRAP PULLER. I agree with the documented findings, disposition and treatment plan as described except to the extent set forth below. POD#1 I&D left breast abscess. Pt doing well. She is to be DC to home with wound vac in place and care. Pt to f/u as scheduled.
--- NOTE | 2018-12-17 13:08 | Physician Discharge Referral ---
Home Health/Hosp Referral Info Transfer to: Home Health Attending Provider: Dr. Moise Duran Provider in Charge Post Discharge: Other (Dr. Erna Maier) - Diagnosis (1) Left breast abscess Priority: Primary Status: Acute - Respiratory Orders Smoking Cessation: Smoking cessation has been advised. For more information, call the [place] Tobacco Quit Line at 8-035-POJB-NOW. - Dressing/Wound Care Site: Maintain wound VAC therapy at -125 mmHg; black foam dressings. Dressing changes every Thursday/Thursday/Thursday per home healthcare. Continue antibiotics as prescribed. Not stop antibiotics without talking to your provider. Take ibuprofen every 8 hours if needed for discomfort. If this does not relieve your discomfort you may take one Percocet. I recommend taking one Percocet approximately 60 minutes prior to your wound VAC changes. Eat a small snack and or take the nausea medication provided approximately 20 minutes prior to taking Percocet. Take narcotics only as directed. Do not share your narcotics with any other person. Do not drive while taking narcotics. Do not drink alcohol while taking narcotics. Follow-up in the office as directed. - Activity Activity Orders: Up ad jamari - Services Needed Following services are medically necessary services: Nursing - Transfer Medications Prescriptions: Amoxicillin/Clavulanate [Augmentin] 875 mg PO BIDWM 14 Days #28 tablet Docusate Sodium [Colace] 100 mg PO BID PRN #30 capsule PRN Reason: Constipation Ibuprofen 800 mg PO Q8H PRN #30 tablet PRN Reason: Postsurgical pain OxyCODONE/APAP 5/325 [Percocet 5/325 MG] 1 each PO Q6HR PRN 7 Days #28 tablet PRN Reason: Pain Ondansetron ODT [Zofran ODT] 4 mg SL Q4HR PRN #30 tab.rapdis PRN Reason: Nausea Home Medications: Paroxetine [Paxil] 40 mg PO DAILY 11/20/15 [History] Albuterol Sulfate [Proair Hfa] 2 puff IH Q4-6H PRN 06/23/16 [History] Amitriptyline HCl 50 mg PO HS 06/23/16 [History] Labetalol [Trandate] 600 mg PO BID 06/23/16 [History] Loratadine [Claritin] 10 mg PO DAILY 06/23/16 [History] TraZODone 100 mg PO HS PRN 06/23/16 [History] Losartan/HCTZ [Hyzaar 50-12.5 Tablet] 1 tab PO DAILY 08/21/16 [History] Tizanidine HCl [Zanaflex] 4 mg PO TID 12/02/17 [History] Basaglar Kwikpen U-100 60 unit SQ HS 07/20/18 [History] Breo Ellipta 200-25 Mcg INH 1 puff IH DAILY 07/20/18 [History] Caltrate 600+D Plus Tablet 1 tab PO BID 07/20/18 [History] Invokamet 150-1,000 mg Tablet 1 tab PO BID 07/20/18 [History] Oxybutynin Chloride [Ditropan XL] 1 tab PO DAILY 07/20/18 [History] Pantoprazole Sodium 1 tab PO DAILY 07/20/18 [History] Ondansetron ODT [Zofran ODT] 4 mg SL Q6HR PRN #8 tab.rapdis 10/04/18 [Rx] Promethazine [Phenergan] 25 mg PO Q6HR PRN #16 tablet 10/04/18 [Rx] Amoxicillin/Clavulanate [Augmentin] 875 mg PO BIDWM 14 Days #28 tablet 12/17/18 [Rx] Docusate Sodium [Colace] 100 mg PO BID PRN #30 capsule 12/17/18 [Rx] Ibuprofen 800 mg PO Q8H PRN #30 tablet 12/17/18 [Rx] Ondansetron ODT [Zofran ODT] 4 mg SL Q4HR PRN #30 tab.rapdis 12/17/18 [Rx] OxyCODONE/APAP 5/325 [Percocet 5/325 MG] 1 each PO Q6HR PRN 7 Days #28 tablet 12/17/18 [Rx] Allergies/Adverse Reactions: Allergy/AdvReac Type Severity Reaction Status Date / Time No Known Allergies Allergy Verified 07/14/18 11:52 Certification: Further, I certify that my clinical findings support that this patient is homebound (i.e. absences from home require considerable and taxing effort and are for medical reasons or sabianism services or infrequently or short duration when for other reasons) because: Homebound Reason: Leaving home requires considerable and taxing effort due to condition Attestation: My signature below is to certify that this patient is under my care and that I, or nurse practitioner, or a physician's medical receptionist medical assistant working with me, has a [id number] encounter with this patient.
[2018-12-17] MEDS ORDERED: Aminoglycoside Consult 1 EACH MC ONE (15:49)
== END 2018-12-17 15:50 | disposition home health service (06) ==
LOC: CDU → 1NENUPED 18:27
PROVIDERS: ADMIT Surgery; ATTEND Surgery

== ENCOUNTER 2021-04-09 14:27 | Inpatient (IN) ==
[2021-04-09] MEDS ORDERED: Vancomycin 1,500 MG/265 ML IV.SOLN IVPB ONE (16:28)
[2021-04-09] MEDS ORDERED: cefTRIAXone 1,000 MG in 0.9 % Sodium Chloride Mini Bag 100 ML IVPB ONE (16:29)
[2021-04-09 16:57] LABS: Basophils # 0.1 K/mcL (0.0-0.2); Basophils % 0.5 %; Eosinophils # 0.1 K/mcL (0.0-0.6); Eosinophils % 0.4 %; Hemoglobin 12.9 g/dL (11.5-15.4); Immature Granulocytes % 0.8 % (0-4); Lymphocytes # 3.5 K/mcL (0.6-4.6); Lymphocytes % 18.8 %; Mean Corpuscular HGB Conc 33.1 g/dL (31.6-35.5); Mean Corpuscular Hemoglobin 30.6 pg (28.0-33.3); Mean Corpuscular Volume 92.6 fL (83.0-100.0); Mean Platelet Volume 9.4 fL (9.4-12.4); Monocytes # 1.7 K/mcL (0.0-1.3); Monocytes % 8.9 %; Neutrophils # 13.1 K/mcL (1.6-8.9); Platelet Count 329 K/mcL (140-400); Red Blood Count 4.21 M/mcL (3.82-4.97); Red Cell Distribution Width 13.6 % (11.5-14.5); Segmented Neutrophils % 70.6 %; White Blood Count 18.5 K/mcL (4.3-11.1)
[2021-04-09 17:08] LABS: INR 1.2; Prothrombin Time 13.3 Seconds (9.4-12.1)
[2021-04-09 17:11] LABS: Activated Partial Thrombo Time 29.6 Seconds (26.0-36.0)
[2021-04-09] MEDS ORDERED: *HR* HYDROmorphone (PF) 1 MG/ML SYRINGE IVP ONE (17:11)
[2021-04-09 17:18] LABS: Alanine Aminotransferase 8 Units/L (7-52); Albumin 3.9 g/dL (3.5-5.7); Albumin/Globulin Ratio 1.1 (1.1-2.2); Alkaline Phosphatase 97 Units/L (34-104); Aspartate Amino Transferase 10 Units/L (13-39); BUN/Creatinine Ratio 13 (6-26); Bilirubin,Total 0.5 mg/dL (0.3-1.0); Blood Urea Nitrogen 9 mg/dL (6-20); Calcium 9.6 mg/dL (8.6-10.3); Carbon Dioxide 26 mEq/L (23-29); Chloride 100 mEq/L (98-107); Globulin 3.7 g/dL (2.4-3.5); Glucose 165 mg/dL (70-105); Osmolality,Calculated 290 (280-300); Potassium 3.7 mEq/L (3.5-5.1); Sodium 139 mEq/L (136-145); Total Protein 7.6 g/dL (6.4-8.9); eGFR For African Americans > 60 (> 60); eGFR For Non-African Americans > 60 (> 60)
[2021-04-09] MEDS ORDERED: Mag Hydrox/Al Hydrox/Simeth 30 ML UDC PO PRN (17:42)
[2021-04-09] MEDS ORDERED: MOM Conc 10 ML UD.LIQ PO PRN (17:42)
[2021-04-09] MEDS ORDERED: Ondansetron ODT 4 MG TAB.RAPDIS SL PRN (17:42)
[2021-04-09] MEDS ORDERED: Naloxone 0.4 MG/ML INJ IVP PRN (17:42)
[2021-04-09] MEDS ORDERED: Melatonin 3 MG TABLET PO PRN (17:42)
[2021-04-09] MEDS ORDERED: Dextrose Gel 15 GM/37.5 ML TUBE PO PRN ×2 (17:43)
[2021-04-09] MEDS ORDERED: D5% in Water 1,000 ML IVC PRN (17:43)
[2021-04-09] MEDS ORDERED: Gadolinium Contrast Agent (WT Based) IV PRN (17:43)
[2021-04-09] MEDS ORDERED: *HR* Dextrose 50 % in Water (Syg) 50 ML SYRINGE IVP PRN (17:43)
[2021-04-09 17:50] LABS: C-Reactive Protein 194 mg/L (Less than 10)
[2021-04-09] MEDS ORDERED: Piperacillin/Tazobactam 3.375 GM in 0.9 % Sodium Chloride Mini Bag 100 ML IVPB SCH (18:00)
[2021-04-09] MEDS ORDERED: GADOBUTROL 30 MMOL/30 ML VIAL IVP ONE (18:04)
[2021-04-09] MEDS ORDERED: Ipratropium/Albuterol Neb 3 ML IH PRN (19:26)
[2021-04-09 20:25] LABS: Estimated Average Glucose 169 mg/dl; Hemoglobin A1C 7.5 %
[2021-04-09] MEDS: Insulin LISPRO 300 UNITS/3 ML VIAL SUBQ SCH ×2 (21:32→21:47)
[2021-04-09] MEDS: Nicotine 21 MG PATCH.TD24 TD SCH (21:46)
[2021-04-09] MEDS: Piperacillin/Tazobactam 3.375 GM in 0.9 % Sodium Chloride Mini Bag 100 ML IVPB SCH (21:50)
[2021-04-09] MEDS: Ketorolac 15 MG/ML VIAL IVP PRN (22:14)
[2021-04-10 03:36] LABS: Hematocrit 36.3 % (35.3-44.9); Hemoglobin 11.9 g/dL (11.5-15.4); Mean Corpuscular HGB Conc 32.8 g/dL (31.6-35.5); Mean Corpuscular Hemoglobin 29.7 pg (28.0-33.3); Mean Corpuscular Volume 90.5 fL (83.0-100.0); Mean Platelet Volume 9.9 fL (9.4-12.4); Platelet Count 312 K/mcL (140-400); Red Blood Count 4.01 M/mcL (3.82-4.97); Red Cell Distribution Width 13.6 % (11.5-14.5); White Blood Count 16.3 K/mcL (4.3-11.1)
[2021-04-10 03:42] LABS: BUN/Creatinine Ratio 14 (6-26); Blood Urea Nitrogen 9 mg/dL (6-20); C-Reactive Protein 149 mg/L (Less than 10); Calcium 8.9 mg/dL (8.6-10.3); Carbon Dioxide 23 mEq/L (23-29); Chloride 103 mEq/L (98-107); Glucose 164 mg/dL (70-105); Osmolality,Calculated 290 (280-300); Potassium 3.5 mEq/L (3.5-5.1); Sodium 139 mEq/L (136-145); eGFR For African Americans > 60 (> 60); eGFR For Non-African Americans > 60 (> 60)
[2021-04-10] MEDS: *HR* Enoxaparin 40 MG/0.4 ML SYRINGE SQ SCH (05:24)
[2021-04-10] MEDS: Ketorolac 15 MG/ML VIAL IVP PRN (05:24)
[2021-04-10] MEDS: Piperacillin/Tazobactam 3.375 GM in 0.9 % Sodium Chloride Mini Bag 100 ML IVPB SCH ×3 (05:25→20:16)
[2021-04-10] MEDS: Vancomycin 1,250 MG/262.5 ML IV.SOLN IVPB SCH ×2 (05:30→20:00)
[2021-04-10] MEDS: Insulin LISPRO 300 UNITS/3 ML VIAL SUBQ SCH ×4 (10:40→20:01)
[2021-04-10] MEDS ORDERED: tiZANidine 4 MG TABLET PO PRN (11:59)
[2021-04-10] MEDS ORDERED: Fluticasone Propionate Nasal 50 MCG/SPRAY BOTTLE NS PRN (11:59)
[2021-04-10] MEDS: *HR* OxyCODONE Immed Rel 5 MG TABLET PO PRN (13:49)
[2021-04-10] MEDS: Nicotine 21 MG PATCH.TD24 TD SCH ×2 (14:14→20:15)
[2021-04-10] MEDS: traZODone 50 MG TABLET PO SCH (20:15)
[2021-04-11] MEDS: *HR* OxyCODONE Immed Rel 5 MG TABLET PO PRN ×2 (03:13→18:18)
[2021-04-11 05:07] LABS: Basophils # 0.1 K/mcL (0.0-0.2); Basophils % 0.6 %; Eosinophils # 0.3 K/mcL (0.0-0.6); Eosinophils % 1.8 %; Hematocrit 36.4 % (35.3-44.9); Immature Granulocytes % 1.1 % (0-4); Lymphocytes # 4.3 K/mcL (0.6-4.6); Lymphocytes % 29.8 %; Mean Corpuscular Hemoglobin 30.6 pg (28.0-33.3); Mean Corpuscular Volume 92.9 fL (83.0-100.0); Monocytes % 7.2 %; Neutrophils # 8.5 K/mcL (1.6-8.9); Platelet Count 356 K/mcL (140-400); Red Blood Count 3.92 M/mcL (3.82-4.97); Red Cell Distribution Width 13.7 % (11.5-14.5); Segmented Neutrophils % 59.5 %; White Blood Count 14.3 K/mcL (4.3-11.1)
[2021-04-11] MEDS: Vancomycin 1,250 MG/262.5 ML IV.SOLN IVPB SCH ×2 (05:15→17:29)
[2021-04-11] MEDS: Piperacillin/Tazobactam 3.375 GM in 0.9 % Sodium Chloride Mini Bag 100 ML IVPB SCH ×3 (05:16→20:17)
[2021-04-11] MEDS: *HR* Enoxaparin 40 MG/0.4 ML SYRINGE SQ SCH (05:16)
[2021-04-11 05:23] LABS: BUN/Creatinine Ratio 17 (6-26); Blood Urea Nitrogen 11 mg/dL (6-20); Calcium 8.8 mg/dL (8.6-10.3); Carbon Dioxide 26 mEq/L (23-29); Chloride 103 mEq/L (98-107); Glucose 274 mg/dL (70-105); Osmolality,Calculated 297 (280-300); Potassium 3.4 mEq/L (3.5-5.1); Sodium 139 mEq/L (136-145); eGFR For African Americans > 60 (> 60); eGFR For Non-African Americans > 60 (> 60)
[2021-04-11 05:45] LABS: Platelet Estimate Normal (Normal)
[2021-04-11] MEDS: Budesonide/Formoterol 160/4.5 1 PUFF INH IH SCH ×2 (07:45→22:49)
[2021-04-11] MEDS: Loratadine 10 MG TABLET PO SCH (08:12)
[2021-04-11] MEDS: Cholecalciferol (D-3) 1,000 UNIT (25MCG) TABLET PO SCH (08:12)
[2021-04-11] MEDS: Insulin LISPRO 300 UNITS/3 ML VIAL SUBQ SCH ×4 (08:13→20:17)
[2021-04-11] MEDS: traZODone 50 MG TABLET PO SCH (20:16)
[2021-04-11] MEDS: Nicotine 21 MG PATCH.TD24 TD SCH (20:16)
[2021-04-12 03:09] LABS: Basophils # 0.1 K/mcL (0.0-0.2); Basophils % 0.5 %; Eosinophils # 0.4 K/mcL (0.0-0.6); Eosinophils % 2.9 %; Hematocrit 34.6 % (35.3-44.9); Hemoglobin 11.3 g/dL (11.5-15.4); Immature Granulocytes % 1.8 % (0-4); Lymphocytes # 4.4 K/mcL (0.6-4.6); Lymphocytes % 30.6 %; Mean Corpuscular HGB Conc 32.7 g/dL (31.6-35.5); Mean Corpuscular Hemoglobin 30.3 pg (28.0-33.3); Mean Corpuscular Volume 92.8 fL (83.0-100.0); Mean Platelet Volume 9.4 fL (9.4-12.4); Monocytes # 1.1 K/mcL (0.0-1.3); Monocytes % 7.6 %; Neutrophils # 8.1 K/mcL (1.6-8.9); Platelet Count 362 K/mcL (140-400); Red Blood Count 3.73 M/mcL (3.82-4.97); Red Cell Distribution Width 13.5 % (11.5-14.5); Segmented Neutrophils % 56.6 %; White Blood Count 14.3 K/mcL (4.3-11.1)
[2021-04-12 03:28] LABS: BUN/Creatinine Ratio 14 (6-26); Blood Urea Nitrogen 9 mg/dL (6-20); Calcium 8.7 mg/dL (8.6-10.3); Carbon Dioxide 23 mEq/L (23-29); Chloride 106 mEq/L (98-107); Glucose 309 mg/dL (70-105); Osmolality,Calculated 298 (280-300); Potassium 3.5 mEq/L (3.5-5.1); Sodium 139 mEq/L (136-145); eGFR For African Americans > 60 (> 60); eGFR For Non-African Americans > 60 (> 60)
[2021-04-12 03:29] LABS: Platelet Estimate Normal (Normal)
[2021-04-12] MEDS: Vancomycin 1,250 MG/262.5 ML IV.SOLN IVPB SCH (05:00)
[2021-04-12] MEDS: Piperacillin/Tazobactam 3.375 GM in 0.9 % Sodium Chloride Mini Bag 100 ML IVPB SCH ×3 (05:01→21:29)
[2021-04-12] MEDS: *HR* Enoxaparin 40 MG/0.4 ML SYRINGE SQ SCH (05:01)
[2021-04-12] MEDS: *HR* OxyCODONE Immed Rel 5 MG TABLET PO PRN ×2 (05:09→21:29)
[2021-04-12] MEDS: Insulin LISPRO 300 UNITS/3 ML VIAL SUBQ SCH ×4 (07:39→19:31)
[2021-04-12] MEDS: Loratadine 10 MG TABLET PO SCH (07:39)
[2021-04-12] MEDS: Cholecalciferol (D-3) 1,000 UNIT (25MCG) TABLET PO SCH (07:39)
[2021-04-12] MEDS: Budesonide/Formoterol 160/4.5 1 PUFF INH IH SCH ×2 (07:56→20:43)
[2021-04-12] MEDS: Nicotine 21 MG PATCH.TD24 TD SCH (19:29)
[2021-04-12] MEDS: traZODone 50 MG TABLET PO SCH (19:30)
[2021-04-13 06:02] LABS: Basophils # 0.1 K/mcL (0.0-0.2); Basophils % 0.6 %; Eosinophils # 0.4 K/mcL (0.0-0.6); Eosinophils % 2.8 %; Hematocrit 34.2 % (35.3-44.9); Hemoglobin 11.2 g/dL (11.5-15.4); Immature Granulocytes % 1.6 % (0-4); Lymphocytes # 3.7 K/mcL (0.6-4.6); Lymphocytes % 26.6 %; Mean Corpuscular HGB Conc 32.7 g/dL (31.6-35.5); Mean Corpuscular Hemoglobin 30.4 pg (28.0-33.3); Mean Corpuscular Volume 92.7 fL (83.0-100.0); Mean Platelet Volume 9.5 fL (9.4-12.4); Monocytes # 1.1 K/mcL (0.0-1.3); Monocytes % 7.6 %; Neutrophils # 8.5 K/mcL (1.6-8.9); Platelet Count 400 K/mcL (140-400); Red Blood Count 3.69 M/mcL (3.82-4.97); Red Cell Distribution Width 13.4 % (11.5-14.5); Segmented Neutrophils % 60.8 %
[2021-04-13] MEDS: *HR* Enoxaparin 40 MG/0.4 ML SYRINGE SQ SCH (06:21)
[2021-04-13] MEDS: Piperacillin/Tazobactam 3.375 GM in 0.9 % Sodium Chloride Mini Bag 100 ML IVPB SCH ×3 (06:21→23:21)
[2021-04-13] MEDS: *HR* OxyCODONE Immed Rel 5 MG TABLET PO PRN ×2 (06:21→21:17)
[2021-04-13] MEDS: Budesonide/Formoterol 160/4.5 1 PUFF INH IH SCH ×2 (07:44→20:26)
[2021-04-13] MEDS: Loratadine 10 MG TABLET PO SCH (09:09)
[2021-04-13] MEDS: Cholecalciferol (D-3) 1,000 UNIT (25MCG) TABLET PO SCH (09:10)
[2021-04-13] MEDS: Insulin LISPRO 300 UNITS/3 ML VIAL SUBQ SCH ×4 (09:14→21:18)
[2021-04-13] MEDS: Nicotine 21 MG PATCH.TD24 TD SCH (21:17)
[2021-04-13] MEDS: traZODone 50 MG TABLET PO SCH (21:17)
[2021-04-14 04:37] LABS: Basophils # 0.1 K/mcL (0.0-0.2); Basophils % 0.4 %; Eosinophils # 0.4 K/mcL (0.0-0.6); Eosinophils % 2.6 %; Hematocrit 36.7 % (35.3-44.9); Hemoglobin 12.3 g/dL (11.5-15.4); Immature Granulocytes % 1.3 % (0-4); Lymphocytes # 3.9 K/mcL (0.6-4.6); Lymphocytes % 25.7 %; Mean Corpuscular HGB Conc 33.5 g/dL (31.6-35.5); Mean Corpuscular Hemoglobin 30.9 pg (28.0-33.3); Mean Corpuscular Volume 92.2 fL (83.0-100.0); Mean Platelet Volume 9.2 fL (9.4-12.4); Monocytes % 6.4 %; Neutrophils # 9.6 K/mcL (1.6-8.9); Platelet Count 423 K/mcL (140-400); Red Blood Count 3.98 M/mcL (3.82-4.97); Red Cell Distribution Width 13.4 % (11.5-14.5); Segmented Neutrophils % 63.6 %; White Blood Count 15.1 K/mcL (4.3-11.1)
[2021-04-14] MEDS: Piperacillin/Tazobactam 3.375 GM in 0.9 % Sodium Chloride Mini Bag 100 ML IVPB SCH ×3 (06:01→23:03)
[2021-04-14] MEDS: *HR* Enoxaparin 40 MG/0.4 ML SYRINGE SQ SCH (06:02)
[2021-04-14] MEDS: *HR* OxyCODONE Immed Rel 5 MG TABLET PO PRN ×2 (06:07→20:28)
[2021-04-14] MEDS: Budesonide/Formoterol 160/4.5 1 PUFF INH IH SCH ×2 (07:25→23:04)
[2021-04-14] MEDS: Cholecalciferol (D-3) 1,000 UNIT (25MCG) TABLET PO SCH (09:08)
[2021-04-14] MEDS: Loratadine 10 MG TABLET PO SCH (09:08)
[2021-04-14] MEDS: Insulin LISPRO 300 UNITS/3 ML VIAL SUBQ SCH ×4 (09:09→20:29)
[2021-04-14] MEDS: Nicotine 21 MG PATCH.TD24 TD SCH (20:27)
[2021-04-14] MEDS: traZODone 50 MG TABLET PO SCH (20:27)
[2021-04-15] MEDS: Piperacillin/Tazobactam 3.375 GM in 0.9 % Sodium Chloride Mini Bag 100 ML IVPB SCH (06:27)
[2021-04-15] MEDS: *HR* Enoxaparin 40 MG/0.4 ML SYRINGE SQ SCH (06:27)
[2021-04-15 07:45] LABS: Basophils # 0.1 K/mcL (0.0-0.2); Basophils % 0.5 %; Eosinophils # 0.3 K/mcL (0.0-0.6); Eosinophils % 2.1 %; Hematocrit 36.6 % (35.3-44.9); Hemoglobin 11.9 g/dL (11.5-15.4); Immature Granulocytes % 0.7 % (0-4); Lymphocytes # 3.9 K/mcL (0.6-4.6); Lymphocytes % 25.9 %; Mean Corpuscular HGB Conc 32.5 g/dL (31.6-35.5); Mean Corpuscular Hemoglobin 30.3 pg (28.0-33.3); Mean Corpuscular Volume 93.1 fL (83.0-100.0); Mean Platelet Volume 10.4 fL (9.4-12.4); Monocytes # 1.1 K/mcL (0.0-1.3); Monocytes % 7.4 %; Neutrophils # 9.5 K/mcL (1.6-8.9); Platelet Count 323 K/mcL (140-400); Red Blood Count 3.93 M/mcL (3.82-4.97); Red Cell Distribution Width 13.6 % (11.5-14.5); Segmented Neutrophils % 63.4 %; White Blood Count 14.9 K/mcL (4.3-11.1)
[2021-04-15] MEDS: Cholecalciferol (D-3) 1,000 UNIT (25MCG) TABLET PO SCH (08:02)
[2021-04-15] MEDS: Loratadine 10 MG TABLET PO SCH (08:03)
[2021-04-15] MEDS: Insulin LISPRO 300 UNITS/3 ML VIAL SUBQ SCH (08:04)
[2021-04-15 08:35] LABS: BUN/Creatinine Ratio 13 (6-26); Blood Urea Nitrogen 8 mg/dL (6-20); Carbon Dioxide 26 mEq/L (23-29); Chloride 104 mEq/L (98-107); Glucose 194 mg/dL (70-105); Osmolality,Calculated 294 (280-300); Sodium 140 mEq/L (136-145); eGFR For African Americans > 60 (> 60); eGFR For Non-African Americans > 60 (> 60)
[2021-04-15 10:47] VITALS: BP 133/73; PULSE 68; TEMP 98.5
[2021-04-15] MEDS: Budesonide/Formoterol 160/4.5 1 PUFF INH IH SCH (11:04)
[2021-04-15 11:06] VITALS: O2SAT 97
== END 2021-04-15 12:16 | disposition home health service (06) | DRG 380 ==
LOC: EMEROOARM 14:27 → 4WAOSI 14:27 → SUATTDRO 18:00 → 4WAOSI 19:33
PROVIDERS: ADMIT Student in an Organized Health Care Education/Training Program; ATTEND Family Medicine